=== PATIENT | female | born 1955 | race Caucasian/White ===

== ENCOUNTER 2021-12-14 02:35 | Outpatient (CLI) | payer MEDICARE, OTHER, SELFPAY ==
[2021-12-14 10:15] LABS: HCT 46.3 % (36.0-46.0); HGB 15.1 g/dL (11.2-15.7); MCH 30.5 pg (27.0-33.0); MCHC 32.6 % (32.0-36.0); MCV 94 fL (80-95); MPV 10.2 fL (8.0-11.0); Platelet Count 164 10^3/uL (130-400); RBC 4.95 10^6/uL (3.93-5.22); RDW 13.3 % (11.7-14.6); RDW-SD 45.3 fL; WBC 8.75 10^3/uL (4.4-10.8)
[2021-12-14 10:27] LABS: Hemoglobin A1C 8.2 % (<5.7)
[2021-12-14 11:14] LABS: ALT 41 U/L (14-59); AST 22 U/L (15-37); Albumin 3.7 g/dL (3.4-5.0); Alkaline Phosphatase 110 U/L (46-116); Anion Gap 9.1 mmol/L (3-11); BUN 18 mg/dL (7-18); Bilirubin, Total 0.6 mg/dL (0.2-1.0); CO2 27.9 mmol/L (21.0-32.0); CREATININE 0.8 mg/dL (0.55-1.02); Calcium 8.8 mg/dL (8.5-10.1); Calculated LDL 46 mg/dL (<100); Chloride 105 mmol/L (98-107); Cholesterol 109 mg/dL (<200); Glucose 174 mg/dL (74-106); HDL Cholesterol 44 mg/dL (40-60); Potassium 4.1 mmol/L (3.5-5.1); Sodium 142 mmol/L (136-145); Triglyceride 95 mg/dL (<150)
== END 2021-12-14 02:36 | disposition home or self-care (01) ==
LOC: LBO 02:36
PROVIDERS: PCP Nurse Practitioner; Visit Provider Nurse Practitioner
DX: I10 Essential (primary) hypertension (principal); E11.9 Type 2 diabetes mellitus without complications; E78.5 Hyperlipidemia, unspecified; E66.9 Obesity, unspecified
CPT/HCPCS: 36415; 80053; 80061; 85027; 83036

== ENCOUNTER → 2022-01-17 00:05 | Outpatient (CLI) | payer MEDICARE, OTHER, SELFPAY ==
--- NOTE | 2022-01-17 07:00 | DI.US_ITS ---
Exam(s) US SOFT TISSUE HEAD OR NECK EXAM: US SOFT TISSUE HEAD OR NECK CLINICAL HISTORY: NT bilateral small masses ? node or other,r22.1. TECHNIQUE: Ultrasound was performed using standard protocol. COMPARISON: No exams were available for comparison FINDINGS: Sonographic assessment utilizing grayscale and color Doppler imaging was performed and targeted to th e area of clinical concern in the bilateral neck. Multiple bilateral lymph nodes visible in the supraclavicular regions and both anterior and posterior neck. Largest lymph node on the left is located in the supraclavicular region measuring 12 millimet ers. The largest node on the right measures 2.8 cm in greatest dimension in the anterior chain. IMPRESSION: Multiple bilateral enlarged cervical lymph nodes, the largest on the right measuring 2.8 cm. Finding s may be reactive however malignancy is not excluded. DATA REPOSITORY:
== END ==
PROVIDERS: PCP Nurse Practitioner; Visit Provider Nurse Practitioner
DX: R59.0 Localized enlarged lymph nodes
CPT/HCPCS: 76536

== ENCOUNTER 2022-06-14 11:55 | Outpatient (REF) | payer MEDICARE, OTHER, SELFPAY ==
[2022-06-15 15:09] LABS: Influenza A RNA Result Negative (Negative); Influenza B RNA Result Negative (Negative); RSV RNA Result Positive (Negative)
[2022-06-17 00:24] LABS: COVID-19 RT-PCR UVMMC Result Indeterminate (Negative)
== END 2022-06-14 11:56 | disposition home or self-care (01) ==
LOC: LBN 11:55
PROVIDERS: PCP Nurse Practitioner; Visit Provider Nurse Practitioner
DX: R05.9 Cough, unspecified (principal); R06.2 Wheezing; R09.89 Other specified symptoms and signs involving the circulatory and respiratory systems; Z20.822 Contact with and (suspected) exposure to COVID-19
CPT/HCPCS: 87631; U0003

== ENCOUNTER → 2023-02-22 02:16 | Outpatient (CLI) | payer MEDICARE, OTHER, SELFPAY ==
--- NOTE | 2023-02-22 12:15 | DI.MAMMO_ITS ---
Exam(s) MAMMO SCREENING EXAM: MAMMO SCREENING CLINICAL HISTORY: screening,Z12.39 TECHNIQUE: Bilateral full field digital CC and MLO mammographic images were obtained with 3D tomosyn thesis and utilizing computer aided detection (CAD). COMPARISON: Available for comparison. FINDINGS: Masses/Architectural Distortion: There is a 3-4 mm well-circumscribed nodule in the central retroareo lar region of the left breast on the CC view. No areas of architectural distortion are seen. Microcalcifications: No suspicious pleomorphic-type are seen. Skin Thickening/Nipple Retraction: None. IMPRESSION: 1. Small retroareolar nodule in the left breast. 2. Spot compression views requested for further evaluation. Limited left breast ultrasound may be in dicated at that time. BI-RADS Category 0 - Assessment Incomplete: Need additional imaging evaluation Breast Density - Category A - Almost entirely fatty Breast density category C or D implies that the patient has dense breast tissue. Dense breast tissue is very common and is not abnormal but dense breast tissue can make it harder to find cancer on a ma mmogram. Also, dense breast tissue may increase their breast cancer risk. This information about the result of the mammogram report was provided to the patient to raise their awareness. Use this report when you speak with the patient about their risks for breast cancer, which includes their family hist ory. At that time, you may recommend for more screening tests (Ultrasound or MRI) as they might be us eful based on their risk. A negative radiographic report should not delay biopsy if a dominant or clinically suspicious mass is present. Up to ten percent of cancers are not identified on mammography. A negative report may reinforce clinical impression. Adenosis and dense breasts may obscure an underlying neoplasm. False positive reports average 6 to 10%. Patient will receive a letter notifying them of these results.
== END ==
PROVIDERS: PCP Nurse Practitioner; Visit Provider Nurse Practitioner
DX: Z12.39 Encounter for other screening for malignant neoplasm of breast (principal); C50.112 Malignant neoplasm of central portion of left female breast
CPT/HCPCS: 77063; 77067

== ENCOUNTER → 2023-03-20 02:25 | Outpatient (CLI) | payer MEDICARE, OTHER, SELFPAY ==
--- NOTE | 2023-03-20 | DI.MAMMO_ITS ---
Exam(s) MAMMO SCREEN CALL BACK UNI EXAM: MAMMO SCREEN CALL BACK UNI CLINICAL HISTORY: RETROAREOLAR NODULE LEFT BREAST R92.8 ABNL MAMMO TECHNIQUE: Spot compression views with tomographic imaging were performed. COMPARISON: 22 February 2023 FINDINGS: No suspicious masses or suspicious microcalcifications are seen. There is a tiny peripherally calcified nodule consistent an oil cyst. There has been no significant change from prior exams. IMPRESSION: BI-RADS Category 2 - Benign Findings Yearly screening mammography is recommended. Breast Density - Category A - Almost entirely fatty
== END ==
PROVIDERS: PCP Nurse Practitioner; Visit Provider Nurse Practitioner
DX: Z12.31 Encounter for screening mammogram for malignant neoplasm of breast (principal)
CPT/HCPCS: 77063; 77067

== ENCOUNTER → 2023-03-22 01:51 | Outpatient (CLI) | payer MEDICARE, OTHER, SELFPAY ==
--- NOTE | 2023-03-22 08:15 | DI.US_ITS ---
Exam(s) US SOFT TISSUE HEAD OR NECK EXAM: US SOFT TISSUE HEAD OR NECK CLINICAL HISTORY: enlarged posterior cervical nodes,F/U 01/17/22,R59.0. TECHNIQUE: Ultrasound was performed using standard protocol. COMPARISON: US US SOFT TISSUE HEAD OR NECK from 01/17/2022 FINDINGS: Sonographic assessment utilizing grayscale and color Doppler imaging was performed and targeted to th e area of clinical concern. A right posterior cervical lymph node is noted measuring greatest dimension 1.3 cm. The largest left posterior cervical lymph nodes measured 8 millimeters. The sub mandibular region was also scanned largest measured lymph nodes that measure 13 and 14 millim eters in size and have central fatty lita. The supraclavicular and anterior change were not scanned on today's exam. IMPRESSION: Cervical lymph nodes demonstrated in the posterior chain and submandibular region. DATA REPOSITORY:
== END ==
PROVIDERS: PCP Nurse Practitioner; Visit Provider Registered Nurse Maternal Newborn
DX: R59.0 Localized enlarged lymph nodes (principal)
CPT/HCPCS: 76536

== ENCOUNTER → 2023-04-25 01:05 | Outpatient (CLI) | payer MEDICARE, OTHER, SELFPAY ==
--- NOTE | 2023-04-24 11:45 | PAPNONF_PTH ---
PATIENT: Xin Capone LOC: [facility] U#:[id number] AGE/SX: 70/F ROOM: RE04/25/[address]: Linda Rocha : 1955 BED: DIS: SPEC #: [id number] RECD: 04/25/23 12:54 STATUS: SHABANA MCGREGOR #: [id number] [place]: 04/24/23 11:[address]: Linda Rocha DEPT: [facility] Cytology RECD BY: Celia Coe ENTERED: 04/25/23 12:55 SP TYPE: NANCY CASTRO DR: Humera Sullivan APRN Tissues: 1 - BODY FLUID CYTO-FINE NEEDLE ASPIRATE-[facility] 2 - FLOW CYTOMETRY NODE/TISSUE Procedures: FISH DNA Probe FLOW CYTOMETRY LYMPHOMA PNL BODY FLUID CYTO-FINE NEEDLE ASPIRATE-[facility] Comments: [id number](PTH FNA CT)(FLOW:[id number])(CYTOGENTIC:[id number]) (REFRIGERATED)
--- NOTE | 2023-04-25 07:45 | DI.US_ITS ---
Exam(s) US NEEDLE LOCAL OTHER WO RAD EXAM: US NEEDLE LOCAL OTHER WO RAD CLINICAL HISTORY: enlarged lymph nodes,ULTASOUND GUIDED BX,R59.0. COMPARISON: US US SOFT TISSUE HEAD OR NECK from 03/22/2023 TECHNIQUE: Ultrasound was provided for Dr. Weaver for guidance with performing cervical lymph node b iopsy. FINDINGS: Please see procedure note for details. DATA REPOSITORY:
--- NOTE | 2023-04-25 11:56 | W.PROCNOTE ---
Date of service: 04/25/23 Time of Service: 11:56 Procedure Note Date of procedure: 04/25/23 Procedure: Ultrasound-guided FNA, right submandibular lymph node, pathology present Procedure Diagnosis: Cervical lymphadenopathy Procedure Indications: Patient has persistent cervical lymphadenopathy. Ultrasound showed enlarged hypoechoic lymph nodes within the neck. Options were explained to the patient regarding further management. She elected to undergo the above procedure. Consent was filled out and signed prior to procedure. Procedure Description: The patient was positioned in supine position and prepped and draped in appropriate fashion. Lymph nodes along the left side of the neck, right side of the neck, and posterior triangles were examined. After discussion the decision was made to biopsy the right submandibular triangle lymph node. Ultrasound was used to localize the lymph node, and then the patient was prepped and draped in appropriate fashion and 1% lidocaine with 1/100,000 epinephrine was injected into the skin and subcutaneous tissues overlying the mass. A 25-gauge needle was passed repeatedly into the lymph node, and pathology verified lymphoid tissue without any overt evidence of metastatic process. As result, 2 additional passes were made for RPMI preparation. There is no significant bleeding. There is no bruising. The patient tolerated the procedure well. Sterile dressing was applied. The patient was then allowed to sit and stand and then ambulate. Her vital signs remained stable. She will remove the bandage tonight and not replace it. She will call with any signs of infection. She will call if she does not hear from me within 1 week with regard to pathology results. Further care will be driven based on FNA results
== END ==
PROVIDERS: PCP Nurse Practitioner; Visit Provider Registered Nurse Maternal Newborn
DX: R59.0 Localized enlarged lymph nodes (principal)
CPT/HCPCS: 10005; 88271; 76942; 88104; 88184; 88185

== ENCOUNTER 2023-04-27 12:07 | Outpatient (CLI) | payer MEDICARE, OTHER, SELFPAY ==
[2023-04-27 12:11] LABS: Abs Immature Grans 0.03 10^3/uL (0.0-0.06); Absolute Basophil Count 0.06 10^3/uL (0.0-0.2); Absolute Monocyte Count 0.86 10^3/uL (0.1-0.8); Absolute Neutrophil Count 3.88 10^3/uL (1.2-6.7); Basophils % 0.7; Eosinophils % 3.5; HCT 46.5 % (36.0-46.0); HGB 15.4 g/dL (11.2-15.7); Immature Grans % 0.4; Lymphocytes % 39.9; MCH 30.7 pg (27.0-33.0); MCHC 33.1 % (32.0-36.0); MCV 93 fL (80-95); MPV 10.5 fL (8.0-11.0); Monocytes % 10.1; Neutrophils % 45.4; Platelet Count 174 10^3/uL (130-400); RBC 5.02 10^6/uL (3.93-5.22); RDW 13.6 % (11.7-14.6); RDW-SD 46.6 fL; WBC 8.53 10^3/uL (4.4-10.8)
[2023-04-27 12:59] LABS: ALT 73 U/L (14-59); AST 40 U/L (15-37); Albumin 3.6 g/dL (3.4-5.0); Alkaline Phosphatase 146 U/L (46-116); Anion Gap 8.6 mmol/L (3-11); BUN 14 mg/dL (7-18); Bilirubin, Total 0.8 mg/dL (0.2-1.0); CO2 26.4 mmol/L (21.0-32.0); CREATININE 0.8 mg/dL (0.55-1.02); Calcium 9.5 mg/dL (8.5-10.1); Calculated LDL 20 mg/dL (<100); Chloride 106 mmol/L (98-107); Cholesterol 81 mg/dL (<200); Estimated GFR 80.21 (mL/min/1.73m2); Glucose 163 mg/dL (74-106); HDL Cholesterol 37 mg/dL (40-60); Sodium 141 mmol/L (136-145); Total Protein 7.2 g/dL (6.4-8.2); Triglyceride 124 mg/dL (<150)
[2023-04-27 13:42] LABS: LDH 173 U/L (81-234)
[2023-04-28 08:52] LABS: Hepatitis C Ab w Rflx HCV PCR Negative (Negative)
== END 2023-04-27 12:08 | disposition home or self-care (01) ==
LOC: LBO 12:07
PROVIDERS: PCP Nurse Practitioner; Visit Provider Otolaryngology
DX: R59.1 Generalized enlarged lymph nodes (principal); R51.9 Headache, unspecified; E11.9 Type 2 diabetes mellitus without complications; I10 Essential (primary) hypertension; Z11.59 Encounter for screening for other viral diseases
CPT/HCPCS: 36415; 80053; 80061; 86803; 83615; 85025

== ENCOUNTER 2023-05-08 07:01 | Day surgery (SDC) | payer MEDICARE, OTHER, SELFPAY ==
[2023-05-08 07:00] VITALS: BP 128/80; PULSE 66; RESP 16; TEMP 36.2; O2SAT 97
--- NOTE | 2023-05-08 08:04 | W.PM.DSUDISC ---
Date of service: 05/08/23 Time of Service: 08:04 Discharge Plan Disposition Condition: Good Discharge Details Attending Provider: Randolph Weaver Primary Care Provider: Humera Sullivan Home Meds and New Rx's Prescriptions: No Action aspirin 81 mg tablet,delayed release (DR/EC) 81 mg PO DAILY atorvastatin 80 mg tablet 80 mg PO DAILY Qty: 90 1RF diclofenac sodium [Voltaren Arthritis Pain] 1 % gel 2 g topical QID PRN (Reason: joint pain) Qty: 100 5RF Rx Instructions: apply to single elbow, wrist or hand, knees losartan 50 mg tablet 50 mg PO DAILY Qty: 90 1RF metformin 500 mg tablet extended release 24 hr 500 mg PO BID Qty: 180 1RF Bioflex [id number] mg tablet PO DAILY metoprolol tartrate 50 mg tablet See Rx Instructions .ROUTE .COMPLEX Qty: 180 1RF Dose Instruction: TAKE 1 TABLET TWICE A DAY Rx Instructions: TAKE 1 TABLET TWICE A DAY ezetimibe 10 mg tablet See Rx Instructions .ROUTE .COMPLEX Qty: 90 1RF Dose Instruction: TAKE 1 TABLET DAILY Rx Instructions: TAKE 1 TABLET DAILY Jardiance 25 mg tablet See Rx Instructions .ROUTE .COMPLEX Qty: 90 1RF Dose Instruction: TAKE 1 TABLET DAILY Rx Instructions: TAKE 1 TABLET DAILY Discharge Instructions Additional Instructions: Remove the bandage tomorrow morning, and do not replace. Apply bacitracin twice daily for 3 days once the bandages removed. Call with any signs of infection or concern. You may get the wound wet after 48 hours. Pat it dry. Ibuprofen or Tylenol or Advil or Aleve for pain control. Call my office with any concerns. My cell phone number is [phone] if it is after hours and you have any concerns. Referrals: Randolph Weaver MD [ [facility] STAFF PHYSICIAN] - (1 week with Linda or myself for suture removal. Please call the office prior to patient's departure)
--- NOTE | 2023-05-08 08:38 | LYM_PTH ---
PATIENT: Xin Capone LOC: [facility] U#:[id number] AGE/SX: 67/F ROOM: RE05/08/[address]: Randolph Weaver MD : 1955 BED: DIS: 05/08/2023 SPEC #: [id number] RECD: 05/08/23 12:29 STATUS: SHABANA RENaveen #: [id number] [place]: 05/08/23 08:[address]: Randolph Weaver DEPT: Surgical Specimen RECD BY: Celia Coe ENTERED: 05/08/23 12:32 SP TYPE: LYM OTHR DR: Humera Sullivan APRN Tissues: 1 - LYMPH NODE BIOPSY 2 - FLOW CYTOMETRY NODE/TISSUE Procedures: GROSS AND MICRO LEVEL 4 IMMUNOPEROXIDASE STAIN FLOW CYTOMETRY LYMPHOMA PNL Comments: [id number] (SENT REFRIGERATED) (FLOW CYTOMETRY [id number])
[2023-05-08] MEDS: Lidocaine 1% Multi-Dose W/EPI 1/100,000 50 ML VIAL (08:46)
--- NOTE | 2023-05-08 09:02 | W.PM.OP ---
Date of service: 05/08/23 Time of Service: 09:02 Operative Note Operative Note DATE OF PROCEDURE: 05/08/23 PRE-OP DIAGNOSIS: Cervical lymphadenopathy POST-OP DIAGNOSIS: same PROCEDURE: Excision of left posterior triangle lymph node SURGEON: Randolph Weaver BARREL LATHE OPERATOR OUTSIDE: Linda Rocha ANESTHESIA TYPE: Local By Surgeon Refer to Anesthesia Record ESTIMATED BLOOD LOSS: 2 PATHOLOGY: other (Lymph node, sent for flow cytometry, permanent, and in saline trisected) COMPLICATIONS: None Patient was transported to: same day Patient's condition: stable Implants: None Indications: Patient with the above problems. Options were explained to patient regarding further management. She elected to undergo lymph node excisional biopsy. Risks and benefits were discussed at length prior to surgery. The decision was made to approach the posterior triangle lymph node as it was easily palpable, although small. It also felt firm, suggesting pathology. Findings: Posterior triangle lymph node, firm, singular, located below the platysma plane Procedure Description: The patient was positioned in on her right side, with her neck tipped to the right. She was prepped and draped in appropriate fashion. 1% lidocaine with 1/100,000 epinephrine was injected around the lymph node and into the overlying skin. An incision measuring approximately 2.5 cm was made in the skin crease, and extended down into the subcutaneous fat. The platysmal plane was , and the lymph node identified, and excised in its entirety. This was then trisected with portion of it going in formalin, a portion going in CytoLyt, and a portion going in saline. The incision was closed in a layered fashion using inverted interrupted Monocryl to approximate the deeper tissues and then three-point 0 nylon sutures to approximate skin edges. Bacitracin and a sterile dressing were applied. Bleeding was minimal and self-limited. The patient tolerated the procedure well. I was present throughout the entire case.
--- NOTE | 2023-05-08 09:14 | W.PM.DSUDISC ---
Date of service: 05/08/23 Time of Service: 09:14 Discharge Plan Disposition Patient Disposition: Home Condition: Good Discharge Details Attending Provider: Randolph Weaver Primary Care Provider: Humera Sullivan Home Meds and New Rx's Prescriptions: No Action aspirin 81 mg tablet,delayed release (DR/EC) 81 mg PO DAILY atorvastatin 80 mg tablet 80 mg PO DAILY Qty: 90 1RF diclofenac sodium [Voltaren Arthritis Pain] 1 % gel 2 g topical QID PRN (Reason: joint pain) Qty: 100 5RF Rx Instructions: apply to single elbow, wrist or hand, knees losartan 50 mg tablet 50 mg PO DAILY Qty: 90 1RF metformin 500 mg tablet extended release 24 hr 500 mg PO BID Qty: 180 1RF Bioflex [id number] mg tablet PO DAILY metoprolol tartrate 50 mg tablet See Rx Instructions .ROUTE .COMPLEX Qty: 180 1RF Dose Instruction: TAKE 1 TABLET TWICE A DAY Rx Instructions: TAKE 1 TABLET TWICE A DAY ezetimibe 10 mg tablet See Rx Instructions .ROUTE .COMPLEX Qty: 90 1RF Dose Instruction: TAKE 1 TABLET DAILY Rx Instructions: TAKE 1 TABLET DAILY Jardiance 25 mg tablet See Rx Instructions .ROUTE .COMPLEX Qty: 90 1RF Dose Instruction: TAKE 1 TABLET DAILY Rx Instructions: TAKE 1 TABLET DAILY Discharge Instructions Additional Instructions: Remove the bandage tomorrow morning, and do not replace. Apply bacitracin twice daily for 3 days once the bandages removed. Call with any signs of infection or concern. You may get the wound wet after 48 hours. Pat it dry. Ibuprofen or Tylenol or Advil or Aleve for pain control. Call my office with any concerns. My cell phone number is [phone] if it is after hours and you have any concerns. Referrals: Randolph Weaver MD [ [facility] STAFF PHYSICIAN] - (1 week with Linda or myself for suture removal. Please call the office prior to patient's departure) Discharge Orders Discharge Orders: Discharge Order (Routine); Ordered 05/08/23 Ordered By: Randolph Weaver
== END 2023-05-08 09:20 | disposition home or self-care (01) ==
PROVIDERS: PCP Nurse Practitioner; Visit Provider Otolaryngology
PROC: 0HB4XZZ Excision of Neck Skin, External Approach (ICD-10-PCS; CPT 38510; principal; 2023-05-08 08:15)
DX: C83.01 Small cell B-cell lymphoma, lymph nodes of head, face, and neck (principal); E11.9 Type 2 diabetes mellitus without complications; Z79.899 Other long term (current) drug therapy; G47.33 Obstructive sleep apnea (adult) (pediatric); I10 Essential (primary) hypertension; Z86.73 Personal history of transient ischemic attack (TIA), and cerebral infarction without residual deficits; I25.2 Old myocardial infarction; Z79.84 Long term (current) use of oral hypoglycemic drugs
CPT/HCPCS: 38510; 88305; 88184; 88185; 88361

== ENCOUNTER 2023-08-07 14:37 | Outpatient (CLI) | payer MEDICARE, OTHER, SELFPAY ==
[2023-08-07 15:03] LABS: Abs Immature Grans 0.06 10^3/uL (0.0-0.06); Absolute Basophil Count 0.06 10^3/uL (0.0-0.2); Absolute Eosinophil Count 0.18 10^3/uL (0.0-0.7); Absolute Lymphocyte Count 3.94 10^3/uL (1.2-3.4); Absolute Monocyte Count 0.68 10^3/uL (0.1-0.8); Basophils % 0.7; HCT 47.7 % (36.0-46.0); HGB 15.6 g/dL (11.2-15.7); Immature Grans % 0.7; Lymphocytes % 42.7; MCH 30.3 pg (27.0-33.0); MCHC 32.7 % (32.0-36.0); MCV 93 fL (80-95); MPV 10.7 fL (8.0-11.0); Monocytes % 7.4; Neutrophils % 46.5; Platelet Count 160 10^3/uL (130-400); RBC 5.15 10^6/uL (3.93-5.22); RDW 13.9 % (11.7-14.6); RDW-SD 47.7 fL; WBC 9.22 10^3/uL (4.4-10.8)
[2023-08-07 15:43] LABS: ALT 55 U/L (14-59); AST 33 U/L (15-37); Albumin 3.8 g/dL (3.4-5.0); Alkaline Phosphatase 105 U/L (46-116); Anion Gap 7.4 mmol/L (3-11); BUN 19 mg/dL (7-18); Bilirubin, Total 0.8 mg/dL (0.2-1.0); CO2 29.6 mmol/L (21.0-32.0); CREATININE 0.8 mg/dL (0.55-1.02); Calcium 9.5 mg/dL (8.5-10.1); Chloride 104 mmol/L (98-107); Estimated GFR 79.71 (mL/min/1.73m2); Glucose 147 mg/dL (74-106); LDH 175 U/L (81-234); Potassium 4.1 mmol/L (3.5-5.1); Sodium 141 mmol/L (136-145); Total Protein 7.3 g/dL (6.4-8.2)
[2023-08-08 10:07] LABS: IgA 339 mg/dL (85-499); IgG 903 mg/dL (610-1616); IgM 44 mg/dL (35-242)
[2023-08-09 16:47] LABS: Misc Referral (MAYO) See Comments
[2023-08-17 08:50] LABS: Test Performed See Comments
[2023-08-17 08:52] LABS: Interpretation See Comments
[2023-08-17 08:53] LABS: Report See Comments
[2023-08-17 08:54] LABS: Karyotype See Comments
[2023-08-17 08:55] LABS: Document reviewed & signed by See Comments
[2023-08-17 08:56] LABS: Comment See Comments
[2023-08-17 09:15] LABS: Misc Referral (MAYO) See Comments
== END 2023-08-07 14:38 | disposition home or self-care (01) ==
LOC: LBO 14:44
PROVIDERS: PCP Nurse Practitioner; Visit Provider Internal Medicine Hematology & Oncology
DX: C91.10 Chronic lymphocytic leukemia of B-cell type not having achieved remission (principal); D72.0 Genetic anomalies of leukocytes
CPT/HCPCS: 36415; 80053; 81263; 81405; 82784; 88237; 88271; 88275; 88291; 83615; 85025; 88230; 88262

== ENCOUNTER 2024-02-14 14:15 | Outpatient (CLI) | payer MEDICARE, OTHER, SELFPAY ==
[2024-02-14 12:23] LABS: Abs Immature Grans 0.03 10^3/uL (0.0-0.06); Absolute Basophil Count 0.05 10^3/uL (0.0-0.2); Absolute Eosinophil Count 0.25 10^3/uL (0.0-0.7); Absolute Lymphocyte Count 3.22 10^3/uL (1.2-3.4); Absolute Monocyte Count 0.81 10^3/uL (0.1-0.8); Absolute Neutrophil Count 3.37 10^3/uL (1.2-6.7); Basophils % 0.6 %; Eosinophils % 3.2 %; HGB 15.9 g/dL (11.2-15.7); Immature Grans % 0.4 %; Lymphocytes % 41.7 %; MCH 30.9 pg (27.0-33.0); MCHC 32.4 % (32.0-36.0); MCV 95 fL (80-95); MPV 9.8 fL (8.0-11.0); Monocytes % 10.5 %; Neutrophils % 43.6 %; Platelet Count 151 10^3/uL (130-400); RBC 5.15 10^6/uL (3.93-5.22); RDW 13.4 % (11.7-14.6); RDW-SD 47.5 fL; WBC 7.73 10^3/uL (4.4-10.8)
[2024-02-14 12:44] LABS: ALT 33 U/L (14-59); AST 21 U/L (15-37); Albumin 3.7 g/dL (3.4-5.0); Alkaline Phosphatase 94 U/L (46-116); BUN 13 mg/dL (7-18); CREATININE 0.9 mg/dL (0.55-1.02); Calcium 9.3 mg/dL (8.5-10.1); Chloride 106 mmol/L (98-107); Glucose 146 mg/dL (74-106); LDH 166 U/L (81-234); Potassium 4.2 mmol/L (3.5-5.1); Sodium 142 mmol/L (136-145); Total Protein 6.9 g/dL (6.4-8.2)
[2024-02-15 09:30] LABS: IgG 592 mg/dL (610-1616)
== END 2024-02-14 14:16 | disposition home or self-care (01) ==
LOC: LBO 14:15
PROVIDERS: PCP Nurse Practitioner; Visit Provider Nurse Practitioner Adult Health
DX: C91.10 Chronic lymphocytic leukemia of B-cell type not having achieved remission (principal)
CPT/HCPCS: 36415; 80053; 82784; 83615; 85025

== ENCOUNTER 2025-03-05 12:50 | Outpatient (CLI) | payer MEDICARE, OTHER, SELFPAY ==
[2025-03-05 10:55] LABS: Abs Immature Grans 0.04 10^3/uL (0.0-0.06); HCT 47.1 % (36.0-46.0); HGB 15.5 g/dL (11.2-15.7); Immature Grans % 0.5 %; MCH 30.6 pg (27.0-33.0); MCHC 32.9 % (32.0-36.0); MCV 93 fL (80-95); MPV 10.1 fL (8.0-11.0); Platelet Count 150 10^3/uL (130-400); RBC 5.07 10^6/uL (3.93-5.22); RDW 13.6 % (11.7-14.6); RDW-SD 46.5 fL; WBC 8.58 10^3/uL (4.4-10.8)
[2025-03-05 11:12] LABS: ALT 47 U/L (14-59); AST 29 U/L (15-37); Albumin 3.7 g/dL (3.4-5.0); Alkaline Phosphatase 113 U/L (46-116); Anion Gap 4.7 mmol/L (3-11); BUN 14 mg/dL (7-18); Bilirubin, Total 1.0 mg/dL (0.2-1.0); CO2 30.3 mmol/L (21.0-32.0); Calcium 8.9 mg/dL (8.5-10.1); Chloride 107 mmol/L (98-107); Estimated GFR 79.22 (mL/min/1.73m2); Glucose 154 mg/dL (74-106); LDH 178 U/L (81-234); Potassium 4.1 mmol/L (3.5-5.1); Sodium 142 mmol/L (136-145); Total Protein 6.6 g/dL (6.4-8.2)
== END 2025-03-05 12:51 | disposition home or self-care (01) ==
LOC: LBO 12:50
PROVIDERS: PCP Nurse Practitioner; Visit Provider Nurse Practitioner Adult Health
DX: C91.10 Chronic lymphocytic leukemia of B-cell type not having achieved remission (principal)
CPT/HCPCS: 36415; 80053; 83615; 85025

== ENCOUNTER 2025-03-30 11:53 | Emergency (ER) | payer MEDICARE, OTHER, SELFPAY ==
[2025-03-30 12:01] VITALS: BP 124/80; PULSE 73; RESP 16; TEMP 36.9; O2SAT 93
--- NOTE | 2025-03-30 12:13 | ED.GENADUL_ITS ---
Discharge Plan Disposition Patient Disposition: Home Condition: Stable Discharge Details Clinical Impression: Urinary tract infection Primary Care Provider: Levi García ED Provider: Javi Barrera Home Meds and New Rx's Prescriptions: New cefpodoxime 200 mg tablet 200 mg PO BID 10 Days Qty: 20 0RF Rx Instructions: must administer with a meal/food Continued aspirin 81 mg tablet,delayed release (DR/EC) 81 mg PO DAILY Jardiance 25 mg tablet See Rx Instructions .ROUTE .COMPLEX Qty: 90 3RF Dose Instruction: TAKE 1 TABLET DAILY Rx Instructions: TAKE 1 TABLET DAILY losartan 50 mg tablet See Rx Instructions .ROUTE .COMPLEX Qty: 90 3RF Dose Instruction: TAKE 1 TABLET DAILY Rx Instructions: TAKE 1 TABLET DAILY Bioflex 162-51-80-40 mg tablet 1 tab PO DAILY diclofenac sodium 1 % gel See Rx Instructions .ROUTE .COMPLEX Qty: 100 12RF Dose Instruction: APPLY 2 GRAMS TOPICALLY FOUR TIMES A DAY NEEDED FOR JOINT PAIN. APPLY TO SINGLE ELBOW, WRIST OR HAND, KNEES Rx Instructions: APPLY 2 GRAMS TOPICALLY FOUR TIMES A DAY NEEDED FOR JOINT PAIN. APPLY TO SINGLE ELBOW, WRIST OR HAND, KNEES metoprolol tartrate 50 mg tablet See Rx Instructions .ROUTE .COMPLEX Qty: 180 3RF Dose Instruction: TAKE 1 TABLET TWICE A DAY Rx Instructions: TAKE 1 TABLET TWICE A DAY atorvastatin 80 mg tablet See Rx Instructions .ROUTE .COMPLEX Qty: 90 3RF Dose Instruction: TAKE 1 TABLET DAILY Rx Instructions: TAKE 1 TABLET DAILY ezetimibe 10 mg tablet See Rx Instructions .ROUTE .COMPLEX Qty: 90 3RF Dose Instruction: TAKE 1 TABLET DAILY Rx Instructions: TAKE 1 TABLET DAILY metformin 500 mg tablet extended release 24 hr See Rx Instructions .ROUTE .COMPLEX Qty: 180 3RF Dose Instruction: TAKE 1 TABLET TWICE A DAY Rx Instructions: TAKE 1 TABLET TWICE A DAY heugerce-mnbltxzwhz-ld glycn-C 500-400 mg capsule 1 cap PO DAILY Discharge Instructions Instructions: Cefpodoxime, Urinary Tract Infection, Adult ED Additional Instructions: You were seen in the emergency department for your urinary tract infection with right flank pain, we are covering you with antibiotics to cover both UTI and possible early kidney infection, please take these as directed, take Tylenol and ibuprofen as needed, stay well-hydrated and return for any severe increase in symptoms especially with fever, nausea or other systemic signs of illness. Referrals: Levi García APRN [Primary Care Provider, [facility]] Discharge Data Discharge Date/Time-TO BE ENTERED AT DEPARTURE: 03/30/25 13:00 HPI General Date/Time Provider Initiated Documentation: 03/30/25 12:11 . HPI Narrative: 69 year-old female presents to ED today by POV/ambulating with a chief complaint of dysuria, urinary urgency, feeling of failure to fully void, and R flank pain with onset over the past 4 days. Quality described as uncomfortable, no radiation to nausea/vomiting, foul smelling urine or discharge, bloody urine, fever, chest pain, shortness of breath, bowel changes. Severity is described as moderate. Palliating factors include nothing specific attempted. Provoking factors include nothing specific. Events leading up to the incident/Associated Symptoms: Patient has only had 1 UTI in the past, 30 years ago. Patient not anticoagulated. Related Data Home Medications ?Medication ?Instructions ?Recorded ?Confirmed vit 1 tab PO DAILY 12/07/2103/04 M-muihqyn-ytktoxjor-rutin-jlun796 500 mg-50 mg-25 mg-40 mg tablet (Bioflex) aspirin 81 mg tablet,delayed 81 mg PO DAILY 12/08/21 0 03/30/25 release diclofenac sodium 1 % topical gel See Rx Instructions .Route 04/01/24 03/30/25 .COMPLEX #100 grams atorvastatin 80 mg tablet See Rx Instructions .Route 0 02/28/25 03/30/25 .COMPLEX #90 tabs ezetimibe 10 mg tablet See Rx Instructions .Route 0 02/28/25 03/30/25 .COMPLEX #90 tabs metformin 500 mg tablet,extended See Rx Instructions . Route 02/28/25 03/30/25 release 24 hr .COMPLEX #180 tabs metoprolol tartrate 50 mg tablet See Rx Instructions . Route 02/28/25 03/30/25 .COMPLEX #180 tabs empagliflozin 25 mg tablet See Rx Instructions .Route 03/13/25 03/30/25 (Jardiance) .COMPLEX #90 tabs losartan 50 mg tablet See Rx Instructions .Route 0 03/13/25 03/30/25 .COMPLEX #90 tabs cefpodoxime 200 mg tablet 200 mg PO BID 10 days #20 ta bs 03/30/25 kuqyseac-vizahoihpu-ku glycn-C 500 1 cap PO DAILY 03/0403/30/25 mg-400 mg capsule Previous Rx's ?Medication ?Instructions ?Recorded diclofenac sodium 1 % topical gel See Rx Instructions .Route 04/01/24 .COMPLEX #100 grams atorvastatin 80 mg tablet See Rx Instructions .Route 0 02/28/25 .COMPLEX #90 tabs ezetimibe 10 mg tablet See Rx Instructions .Route 0 02/28/25 .COMPLEX #90 tabs metformin 500 mg tablet,extended See Rx Instructions . Route 02/28/25 release 24 hr .COMPLEX #180 tabs metoprolol tartrate 50 mg tablet See Rx Instructions . Route 02/28/25 .COMPLEX #180 tabs empagliflozin 25 mg tablet See Rx Instructions .Route 03/13/25 (Jardiance) .COMPLEX #90 tabs losartan 50 mg tablet See Rx Instructions .Route 0 03/13/25 .COMPLEX #90 tabs cefpodoxime 200 mg tablet 200 mg PO BID 10 days #20 ta bs 03/30/25 Allergies Allergy/AdvReac Type Severity Reaction Status Date / Time caffeine Allergy Unknown unknown Verified 03/30/25 12:02 IV Dye Allergy Severe couldnt Uncoded 03/30/25 12:02 breath General Stated Complaint: Urinary CARRIE: 4 Review of Systems All systems reviewed & are unremarkable except as noted in HPI and below Exam Narrative Exam Narrative: GENERAL APPEARANCE: Well-nourished, non-toxic, awake and alert, atraumatic, no acute distress. SKIN: Warm, pink, dry, intact, without rashes/lesions/ulcerations. HEAD: Normocephalic, atraumatic, normal hair distribution for gender/age. EYES: Normal conjunctiva, no exudates on lids/lashes. ENT: Nares patent, no circumoral cyanosis, no facial swelling NECK: Supple, trachea midline, painless cervical ROM. LUNGS/CHEST: Non-labored respirations, normal A/P diameter, symmetrical expansion, no chest wall deformity HEART (CV/PV): No peripheral edema, no JVD. ABDOMEN: Soft, non-distended, no guarding, mild lower abdominal discomfort with palpation, no peritoneal signs, right CVA tenderness to percussion. MSK: Normal ROM, no swelling/deformity to bilateral UEs or LEs, moving all extremities without weakness, no cyanosis, spine midline without tenderness, normal curvature. NEURO: Mental Status AAOx4 - alert to person, place, time, events No facial droop, no forehead involvement. Motor: No focal weakness - strength 5/5 in bilateral UEs and LEs, proximal and distal, symmetric. Sensory: sensation intact to light touch globally. Gait normal: patient ambulated without ataxia into ED room. PSYCH: euthymic, cooperative, pleasant, appropriate speech Course Vital Signs Vital signs: Vital Signs Temperature 36.9 C 03/30/25 12:01 Pulse 73 03/30/25 12:01 Respiratory Rate 16 03/30/25 12:01 Blood Pressure 124/80 03/30/25 12:01 Pulse Oximetry 93 03/30/25 12:01 Temperature 36.9 C 03/30/25 12:01 Temperature Source Oral 03/30/25 12:01 Pulse 73 03/30/25 12:01 Respiratory Rate 16 03/30/25 12:01 Blood Pressure 124/80 03/30/25 12:01 Pulse Oximetry 93 03/30/25 12:01 Oxygen Delivery Method Room Air 03/30/25 12:01 Oxygen Flow Rate 0 03/30/25 12:01 Pain Level 5 03/30/25 12:01 Medical Decision Making This dictation utilizes [id number] dictation software and may contain unedited grammatical errors. 69 year-old female presents to ED today by POV/ambulating with a chief complaint of dysuria, urinary urgency, feeling of failure to fully void, and R flank pain with onset over the past 4 days. Quality described as uncomfortable, no radiation to nausea/vomiting, foul smelling urine or discharge, bloody urine, fever, chest pain, shortness of breath, bowel changes. Severity is described as moderate. Palliating factors include nothing specific attempted. Provoking factors include nothing specific. Events leading up to the incident/Associated Symptoms: Patient has only had 1 UTI in the past, 30 years ago. Patients' medical history: History of CVA, history of KS, hypertension, T2DM, B-cell lymphoma, obesity, hyperlipidemia. Family and social history: Noncontributory. Pertinent exam findings / vital signs include mild lower abdominal discomfort with palpation, no peritoneal signs, right CVA tenderness to percussion, benign cardiopulmonary status, nontoxic and afebrile. Differential / pathologies of concern include UTI, pyelonephritis. Diagnostic studies of: - UA-shows greater than 50 WBCs likely UTI. Interventions of: -Rx for cefpodoxime to cover her R flank pain with UTI. ED Course/Assessment/Plan: 69-year-old female presents with urinary urgency, feeling of incomplete void, dysuria, is right flank pain, possible early pyelonephritis with UTI seen on UA, Rx for cefpodoxime, strict return criteria for any severe acute worsening despite treatment, recommend staying well-hydrated. Findings not consistent with peritonitis, obstructive uropathy. Disposition of urinary tract infection. Patient verbalized understanding of the plan and return to ED criteria and engaged in shared decision making. Medical Records Medical records reviewed: Yes I reviewed the patient's medical records. Lab Data Lab results reviewed: Yes I reviewed the patient's lab results. Labs: Laboratory Tests Range/Units 03/30/25 12:06 Urine Color (Yellow) Yellow Urine Clarity (Clear) Cloudy Urine pH (5-8) 6.0 Ur Specific [place] (1.005-1.025) <= 1.005 Urine Protein (Neg-Trace) mg/dL 100 H Urine Ketones (Negative) mg/dL Negative Urine Blood (Negative) Large H Urine Nitrite (Negative) Negative Urine Bilirubin (Negative) Negative Urine Urobilinogen (Up to 0.2) mg/dL 0.2 Ur Leukocyte Esterase (Negative) Small H Urine RBC (0-2) HPF >50 H Urine WBC (0-5) HPF >50 H Ur Epithelial Cells (Negative) HPF Rare Urine Crystals (Negative) HPF Negative Urine Bacteria (Negative) HPF Few Urine Casts (Negative) LPF Negative Urine Mucus (Negative) Negative Ur Culture Indicated? Yes Urine Glucose (Negative) mg/dL >=1000 H PFSH All Active Problems (Updated 03/30/25 @ 12:51 by BEREKET Patterson) Urinary tract infection (Acute) Diabetes type 2, controlled (Acute) Chronic lymphocytic leukemia not having achieved remission (Acute) 08/23/23 Dr Rivera, [facility] Hem/Onc 02/21/24 Dr Orta, [facility]fredo Hem/Onc B-cell lymphoma (Acute) Lymphadenopathy (Acute) Obesity (Chronic) Hyperlipidemia (Acute) Medical History (Updated 03/30/25 @ 12:51 by BEREKET Patterson) Localized enlarged lymph nodes ANDI on CPAP History of CVA (cerebrovascular accident) History of KS (myocardial infarction) HTN (hypertension), benign Surgical History (Updated 05/08/23 @ 09:09 by Randolph Weaver MD) H/O lymph node biopsy Left posterior cervical triangle, 05/08/2023 History of brain surgery H/O brain surgery (06/07/13) [facility] Social History Smoking/Tobacco Use Status: Never Second Hand Exposure: No Smoking risk assessment performed?: Yes Alcohol Intake: current Alcohol Intake frequency: holidays/special occasions only Drug use: Never Substance use type: does not use Adopted: No Caregiver/Support person: No Foster care: No Household members: spouse Housing: house Number of Children: 2 number of grandchildren: 5 Communication Needs: None Education Level: high school Do you need help understanding health information?: Rarely current occupation: Retired Pets and animals: Yes Pets and animals: cat(s) and dog(s) Sexually active: Yes Do you think of yourself as: straight/heterosexual Current gender identity: female What is your relationship status?: How often do you talk on the phone with friends or family?: three or more times per week How often do you get together with friends or relatives?: three or more times per week Do you belong to any clubs or organized social groups?: no Panel score (0-1 are the most socially isolated patients): 2 What type of physical activity do you participate in: none Za/Sikhism: Latter-Day Special za needs: No Seatbelt use: sometimes Helmet use: Yes Helmet use: always Drive intox or ride w/intox wheat combine driver: No
[2025-03-30 12:26] LABS: Glucose >=1000 mg/dL (Negative)
[2025-03-30 12:36] LABS: C & S Indicated? Yes; RBC >50 HPF (0-2); WBC >50 HPF (0-5)
--- NOTE | 2025-04-01 08:57 | NUR.NOTE ---
Accessed Pt chart to document the antibiotics given to the patient for the Specimen Report. Report was then given to the Providers.
--- NOTE | 2025-04-01 10:13 | W.ED.FU ---
Date of service: 04/01/25 Time of Service: 10:14 Follow Up Plan: This patient had a urine culture return to my shift. Her final culture was growing E. coli at 50-100,000 colony-forming units per mL. Her E. coli was pansensitive. She had been prescribed 10 days of cefpodoxime. Will continue to observe as an outpatient.
== END 2025-03-30 13:00 | disposition home or self-care (01) ==
PROVIDERS: Emergency Provider Physician Assistant
DX: N39.0 Urinary tract infection, site not specified (principal); R10.31 Right lower quadrant pain
CPT/HCPCS: 99283 ×2; 87077; 81003; 81015; 87086; 87186

== ENCOUNTER 2025-04-01 02:10 | Outpatient (CLI) | payer MEDICARE, OTHER, SELFPAY ==
--- NOTE | 2025-04-01 15:20 | DI.MAMMO_ITS ---
Exam(s) MAMMO SCREENING EXAM: MAMMO SCREENING CLINICAL HISTORY: screening,Z12.39. TECHNIQUE: Bilateral full field digital CC and MLO mammographic images were obtained with 3D tomosynthesis and utilizing computer aided detection (CAD). COMPARISON: Prior mammograms were reviewed. FINDINGS: There has been no significant change in the appearance and distribution of the fibroglandular tissue. Benign calcified oil cysts are again noted bilaterally. There are no new spiculated masses nor malignant appearing microcalcification groups. There is no significant architectural distortion nor skin thickening-retraction. IMPRESSION: No radiographic evidence of malignancy. BI-RADS Category 1 - Negative Breast Density - Category A - The breast are almost entirely fatty. Breast density Category C or D implies that the patient has dense breast tissue. Dense breast tissue can make it harder to find cancer on a mammogram. Dense breast tissue is also associated with an increased risk of breast cancer. This information about the result of the mammogram report was provided to the patient to raise their awareness. Use this report when you speak with the patient about their risks for breast cancer, which includes their family history. At that time, you may recommend additional screening tests (Ultrasound or MRI) as these tests may add significant information. A negative radiographic report should not delay biopsy if a dominant or clinically suspicious mass is present. Up to ten percent of cancers are not identified on mammography. A negative report may reinforce clinical impression. Adenosis and dense breasts may obscure an underlying neoplasm. False positive reports average 6 to 10%. Patient will receive a letter notifying them of these results.
== END 2025-04-01 02:30 ==
LOC: DI 02:10
DX: Z12.31 Encounter for screening mammogram for malignant neoplasm of breast (principal); R92.323 Mammographic fibroglandular density, bilateral breasts
CPT/HCPCS: 77063; 77067